=== PATIENT | male | born 2005 | race Two or more races ===

== ENCOUNTER 2024-04-16 09:31 | Emergency (ER) | payer BC ==
[~2024-04-16] VITALS: Ht 177.8 cm; Wt 79.0 kg
[2024-04-16] MEDS ORDERED: PROM1SOL4 PO (12:55)
[2024-04-16] MEDS ORDERED: ZOFR4T PO (12:55)
[2024-04-16] MEDS ORDERED: AUG875T PO (12:55)
[2024-04-16] MEDS ORDERED: IBUP1TAB5 PO (12:55)
[2024-04-16] MEDS ORDERED: BENZ100C97 PO (12:55)
[2024-04-16 13:17] VITALS: BP 133/60; PULSE 86; RESP 18; TEMP 98.5; O2SAT 98
== END 2024-04-16 13:50 | disposition home or self-care (01) ==
LOC: ER 09:31
DX: B34.9 Viral infection, unspecified (principal)

== ENCOUNTER 2024-09-13 09:33 | Emergency (ER) | payer BC, OTHER ==
[~2024-09-13] VITALS: Ht 180.3 cm; Wt 84.0 kg
[~2024-09-13 09:33] MED LIST: AUG875T PO; BENZ100C97 PO; IBUP1TAB5 PO; PROM1SOL4 PO; ZOFR4T PO
--- NOTE | 2024-09-13 10:32 | DVH ---
CLINICAL INDICATION: INJURY TECHNIQUE: XY L ANKLE 3 VIEW Comparison: None FINDINGS/IMPRESSION: : There is no evidence of acute fracture or dislocation. Soft tissues are unremarkable.
--- NOTE | 2024-09-13 10:49 | ED.PDOC ---
Musculoskeletal HPI Comments A 19 YEAR OLD MALE PRESENTS TO THE ED WITH COMPLAINT OF LEFT ANKLE PAIN. PATIENT STATES HE WAS AT WORK TODAY AND HE WAS STEPPING OFF OF A TRUCK HE ACCIDENTALLY TWISTED HIS LEFT ANKLE. PATIENT REPORTS HE IS NOW EXPERIENCING LEFT ANKLE PAIN WITH MILD SWELLING. PATIENT DENIES FEVER, CHILLS, SHORTNESS OF BREATH, CHEST PAIN, ABDOMINAL PAIN, NAUSEA, VOMITING, HEADACHE, OR OTHER COMPLAINTS. NO OTHER SYMPTOMS OR MODIFYING FACTORS AT THIS TIME. PATIENT IS ALERT, ORIENTED X 4, AND HAS STEADY GAIT. Chief Complaint: Lower Extremity Time Seen by MD: 09:51 Primary Care Provider: MARYCARMEN Julio Notes: Nurses Notes, Medications, Allergies Allergies: Coded Allergies: NO KNOWN ALLERGIES (Unverified , 04/16/24) Home Meds Active Scripts Ondansetron Odt 4MG Tab (ZOFRAN PO) 4 Mg Tb, 4 MG PO Q8HPRN PRN for 2 Days, #6 TAB 0 Refills ODT TAB-DISSOLVE IN MOUTH, THEN SWALLOW Prov:RAEGAN LENNON NP 04/16/24 Ibuprofen Micronized (Ibuprofen) 600 Mg Tab, 600 MG PO TID for 10 Days, #30 TAB 0 Refills Prov:RAEGAN LENNON NP 04/16/24 Promethazine-Dm (Promethazine Dm 6.25-15 mg/5Ml) 1 Mame Mame, 5 ML PO TID for 10 Days, #150 ML 0 Refills Prov:RAEGAN LENNON NP 04/16/24 Benzonatate (Benzonatate) 100 Mg Cap, 1 CAP PO TID for 10 Days, #30 CAP 0 Refills Prov:RAEGAN LENNON NP 04/16/24 Amoxicillin & Pot Clavulanate (AUGMENTIN TABLET) 875 Mg Tb, 875 MG PO BID for 7 Days, #14 TAB 0 Refills Prov:RAEGAN LENNON NP 04/16/24 Information Source: Patient Mode of Arrival: Wheelchair Location: Left Extremity Location: Ankle Timing: Days Prehospital treatment: None Severity: Moderate Able to Move Extremity: Yes Bear Weight: Fully Pain: Moderate Mechanism: Twisting Circumstances: Work Related Onset of Symptoms: After Trauma Symptoms: Swelling, Pain DVT Risk Factors: NONE Last Tetanus: UTD Associated signs and symptoms: Ankle pain Past Medical History PAST MEDICAL HISTORY: Denies Surgical History: Denies all surgeries Family History Family History: Reviewed,noncontributory to illness Social History Smoker: Non-Smoker Alcohol: Denies ETOH Use Drugs: Denies Drug Use Lives In: Home Constitutional: denies: chills, diaphoresis, fatigue, fever, malaise, sweats, weakness, others EENTM: denies: blurred vision, double vision, ear bleeding, ear discharge, ear drainage, ear pain, ear ringing, eye pain, eye redness, hearing loss, mouth pain, mouth swelling, nasal discharge, nose bleeding, nose congestion, nose pain, photophobia, tearing, throat pain, throat swelling, voice changes, others Respiratory: denies: cough, hemoptysis, orthopnea, SOB at rest, shortness of breath, SOB with excertion, stridor, wheezing, others Cardiovascular: denies: chest pain, dizzy spells, diaphoresis, Dyspnea on exertion, edema, irregular heart beat, left arm pain, lightheadedness, palpitations, PND, syncope, others Gastrointestinal: denies: abdomen distended, abdominal pain, blood streaked bowels, constipated, diarrhea, dysphagia, difficulty swallowing, hematemesis, melena, nausea, poor appetite, poor fluid intake, rectal bleeding, rectal pain, vomiting, others Genitourinary: denies: burning, dysuria, flank pain, frequency, hematuria, incontinence, penile discharge, penile sore, pain, testicle pain, testicle swelling, urgency, others Neurological: denies: dizziness, fainting, headache, left sided numbness, left sided weakness, numbness, paresthesia, pre-existing deficit, right sided numbne ss, right sided weakness, seizure, speech problems, tingling, tremors, weakness, others Musculoskeletal: reports: joint pain, joint swelling, others (LEFT ANKLE PAIN WITH MILD SWELLING); denies: back pain, gout, muscle pain, muscle stiffness, neck pain Integumetry: denies: bruises, change in color, change in hair/nails, dryness, laceration, lesions, lumps, rash, wounds, others Allergic/Immunocompromised: denies: Difficulty Healing, Frequent Infections, Hives, Itching, others Hematologic/Lymphatic: denies: anemia, blood clots, easy bleeding, easy bruising, swollen glands, others Endocrine: denies: excessive hunger, excessive sweating, excessive thirst, excessive urination, flushing, intolerance to cold, intolerance to heat, unexplained weight gain, unexplained weight loss, others Psychiatric: denies: anxiety, bipolar disorder, depression, hopeless, panic disorder, schizophrenia, sleepless, suicidal, others All Other Systems: Reviewed and Negative Physical Exam General Appearance: No Apparent Distress, Normal HEENT: Normal ENT Inspection, PERRL/EOMI, Pharynx Normal, TMs Normal Neck: Full Range of Motion, Non-Tender, Normal, Normal Inspection Respiratory: Chest Non-Tender, Lungs Clear, No Accessory Muscle Use, No Respiratory Distress, Normal Breath Sounds Cardiovascular: No Edema, No JVD, No Murmur, No Gallop, Normal Peripheral Pulses, Regular Rate/Rhythm Breast Exam: Deferred Gastrointestinal: No Organomegaly, Non Tender, No Pulsatile Mass, Normal Bowel Sounds, Soft Genitalia: Deferred Pelvic: Deferred Rectal: Deferred Extremities: Decreased range of motion, No calf tenderness, Normal capillary refill, No pedal edema, Swelling (TENDERNESS AND MILD SWELLING ON LEFT ANKLE, NO BONY TENDERNESS AND DEFORMITY. ), Tender (AND MILD SWELLING ON LEFT ANKLE, NO BONY TENDERNESS AND DEFORMITY. ) Musculoskeletal : Apperance: Normal Neurologic: Alert, raw hide trimmer II-XII nml as Tested, No Motor Deficits, Normal Affect, Normal Mood, No Sensory Deficits Cerebellar Function: Normal Reflexes: Normal Skin: Dry, Normal Color, Warm Peripheral Pulses: 2+ carotid (R), 2+ carotid (L), 2+ dorsalis pedis (R), 2+ dorsalis pedis (L) Lymphatic: No Adenopathy Was a procedure done? Was a procedure done?: No Differential Diagnosis EXT Differential Diagnosis: Fracture, Sprain, Dislocation, Contusion, Strain, Bursitis X-Ray, Labs, Meds, VS Vital Signs Date Time Temp Pulse Resp B/P (MAP) Pulse Ox O2 Delivery O2 Flow Rate FiO2 09/13/24 09:51 98.0 70 20 127/57 (80) 97 CLINICAL INDICATION: INJURY TECHNIQUE: XY L ANKLE 3 VIEW Comparison: None FINDINGS/IMPRESSION: : There is no evidence of acute fracture or dislocation. Soft tissues are unremarkable. ATED BY: WILBER SEGURA MD DICTATED DATE/TIME: 09/13/24 1029 SIGNED BY: WILBER SEGURA MD SIGNED DATE/TIME: 09/13/24 1029 CC: X-Ray, Labs, Meds, VS Comment EXTERNAL MEDICAL RECORDS REVIEWED: [NONE] INDEPENDENT HISTORIANS: [NONE] SOCIAL DETERMINANTS OF HEALTH: [NONE] LABS ORDERED: NONE REVIEWED AND INTERPRETED RESULTS: NONE IMAGING ORDERED: XR ANKLE LT TREATMENTS ORDERED: LINDA WRAP APPLIED TO PATIENT'S LEFT ANKLE. PROCEDURES PERFORMED: NONE CRITICAL CARE TIME: NONE I HAVE DISCUSSED THE PATIENT WITH THE ATTENDING PHYSICIAN DR. MANE AND HE AGREES WITH THE PATIENT'S PLAN OF CARE AND DISPOSITION. BASED ON HISTORY OF PRESENT ILLNESS, AND PHYSICAL EXAM, PATIENT WILL BE DISCHARGED HOME. SHARED DECISION MAKING: PATIENT INSTRUCTED TO FOLLOW UP WITH PRIMARY CARE PROVIDER IN 1-2 DAYS FOR RE-EVALUATION OF SYMPTOMS. PATIENT VERBALIZES UNDERSTANDING TO RETURN TO ED FOR NEW OR WORSENING SYMPTOMS OR IF FOLLOW UP WITH PCP CANNOT BE OBTAINED. PATIENT FEELS COMFORTABLE GOING HOME AT THIS TIME. ALL QUESTIONS ADDRESSED AT TIME OF DISCHARGE. Images Reviewed?: Images reviewed and evaluated by me Time of 1ST Reevaluation: 11:10 Reevaluation 1ST: Improved Patient Education/Counseling: Diagnosis, Treatment, Need For Follow Up Family Education/Counseling: Diagnosis, Treatment, Need For Follow Up Medical Screening: No EMC Exist At This Time Departure 1 Departure Time of Disposition: 11:10 Impression: Primary Impression: Sprain of left ankle Qualified Codes: S93.402A - Sprain of unspecified ligament of left ankle, initial encounter Disposition: HOME / SELF CARE / HOMELESS Condition: Stable Additional Instructions: FOLLOW-UP WITH PCP IN 1 TO 2 DAYS. TAKE MEDICATIONS PRESCRIBED. RETURN TO ED FOR ANY NEW OR WORSENING SYMPTOMS. e-Prescriptions Ibuprofen (Ibuprofen) 800 Mg Tab 1 TAB PO TID, #30 TAB Prov: SALTY SCHRADER 09/13/24 Discharged With: Self Critical Care Note Critical Care Time?: No Stability Stability form required: No I personally scribed for SALTY SCHRADER ([email or web address]) on 09/13/24 at 10:49. Electronically submitted by Efraín Duckworth ([email or web address]). SALTY SCHRADER Sep 13, 2024 10:49
[2024-09-13] MEDS ORDERED: IBUP-1456 PO (11:04)
[2024-09-13] MEDS: IBUPROFEN 800 MG TAB PO ONE (11:07)
[2024-09-13 11:08] VITALS: BP 127/57; PULSE 70; RESP 20; TEMP 98; O2SAT 97
== END 2024-09-13 11:11 | disposition home or self-care (01) ==
LOC: ER 09:33
DX: S93.402A Sprain of unspecified ligament of left ankle, initial encounter (principal); Z79.1 Long term (current) use of non-steroidal anti-inflammatories (NSAID); X50.1XXA Overexertion from prolonged static or awkward postures, initial encounter; Y93.89 Activity, other specified; Y92.89 Other specified places as the place of occurrence of the external cause; Y99.8 Other external cause status
CPT/HCPCS: 73610

== ENCOUNTER 2025-06-27 11:43 | Inpatient (IN) | payer OTHER, MEDICAID ==
[~2025-06-27] VITALS: Ht 177.8 cm; Wt 87.0 kg
[~2025-06-27 11:43] MED LIST changes: +IBUP-1456 PO
--- NOTE | 2025-06-27 12:52 | ED.PDOC ---
GI ASSESSMENT HPI Comments A 20 YEAR OLD MALE PRESENTS TO THE ED WITH COMPLAINT OF ABDOMINAL PAIN. PATIENT STATES HE HAS BEEN EXPERIENCING GENERALIZED ABDOMINAL PAIN FOR THE PAST 3 DAYS. PATIENT REPORTS HE WAS SENT FROM AN URGENT CARE FOR FURTHER EVALUATION OF HIS ABDOMINAL PAIN. WALKING AND PHYSICAL ACTIVITY INCREASES THE PAIN. PATIENT DENIES FEVER, CHILLS, SHORTNESS OF BREATH, CHEST PAIN, NAUSEA, VOMITING, HEADACHE, OR OTHER COMPLAINTS. NO OTHER SYMPTOMS OR MODIFYING FACTORS AT THIS TIME. PATIENT IS ALERT, ORIENTED X 4, AND HAS STEADY GAIT. Chief Complaint: Abdominal Pain Time Seen by MD: 12:33 Primary Care Provider: MARYCARMEN Reviewed Notes: Nurses Notes, Medications, Allergies Allergies: Coded Allergies: NO KNOWN ALLERGIES (Unverified , 04/16/24) Home Meds Active Scripts Ibuprofen (Ibuprofen) 800 Mg Tab, 1 TAB PO TID, #30 TAB Prov:SALTY SCHRADER 09/13/24 Ondansetron Odt 4MG Tab (ZOFRAN PO) 4 Mg Tb, 4 MG PO Q8HPRN PRN for 2 Days, #6 TAB 0 Refills ODT TAB-DISSOLVE IN MOUTH, THEN SWALLOW Prov:RAEGAN LENNON NP 04/16/24 Ibuprofen Micronized (Ibuprofen) 600 Mg Tab, 600 MG PO TID for 10 Days, #30 TAB 0 Refills Prov:RAEGAN LENNON NP 04/16/24 Promethazine-Dm (Promethazine Dm 6.25-15 mg/5Ml) 1 Mame Mame, 5 ML PO TID for 10 Days, #150 ML 0 Refills Prov:RAEGAN LENNON NP 04/16/24 Benzonatate (Benzonatate) 100 Mg Cap, 1 CAP PO TID for 10 Days, #30 CAP 0 Refills Prov:RAEGAN LENNON NP 04/16/24 Amoxicillin & Pot Clavulanate (AUGMENTIN TABLET) 875 Mg Tb, 875 MG PO BID for 7 Days, #14 TAB 0 Refills Prov:RAEGAN LENNON NP 04/16/24 Information Source: Patient Mode of Arrival: Ambulatory Timing: Days Duration: Since onset, Days Prehospital treatment: None Quality: Aching, Cramping Vomitus: None Stool: Normal Severity: Moderate Recent: None Pain Location: Diffuse Modifying Factors: Nothing Associated sign and symptoms: Abdominal Pain Past Medical History PAST MEDICAL HISTORY: Denies Surgical History: Denies all surgeries Family History Family History: Reviewed,noncontributory to illness Social History Smoker: Non-Smoker Alcohol: Denies ETOH Use Drugs: Denies Drug Use Lives In: Home Constitutional: denies: chills, diaphoresis, fatigue, fever, malaise, sweats, weakness, others EENTM: denies: blurred vision, double vision, ear bleeding, ear discharge, ear drainage, ear pain, ear ringing, eye pain, eye redness, hearing loss, mouth pain, mouth swelling, nasal discharge, nose bleeding, nose congestion, nose pain, photophobia, tearing, throat pain, throat swelling, voice changes, others Respiratory: denies: cough, hemoptysis, orthopnea, SOB at rest, shortness of breath, SOB with excertion, stridor, wheezing, others Cardiovascular: denies: chest pain, dizzy spells, diaphoresis, Dyspnea on exertion, edema, irregular heart beat, left arm pain, lightheadedness, palpitations, PND, syncope, others Gastrointestinal: reports: abdominal pain; denies: abdomen distended, blood streaked bowels, constipated, diarrhea, dysphagia, difficulty swallowing, pablo temesis, melena, nausea, poor appetite, poor fluid intake, rectal bleeding, rectal pain, vomiting, others Genitourinary: denies: burning, dysuria, flank pain, frequency, hematuria, incontinence, penile discharge, penile sore, pain, testicle pain, testicle swelling, urgency, others Neurological: denies: dizziness, fainting, headache, left sided numbness, left sided weakness, numbness, paresthesia, pre-existing deficit, right sided numbness, right sided weakness, seizure, speech problems, tingling, tremors, weakness, others Musculoskeletal: denies: back pain, gout, joint pain, joint swelling, muscle pain, muscle stiffness, neck pain, others Integumetry: denies: bruises, change in color, change in hair/nails, dryness, laceration, lesions, lumps, rash, wounds, others Allergic/Immunocompromised: denies: Difficulty Healing, Frequent Infections, Hives, Itching, others Hematologic/Lymphatic: denies: anemia, blood clots, easy bleeding, easy bruising, swollen glands, others Endocrine: denies: excessive hunger, excessive sweating, excessive thirst, excessive urination, flushing, intolerance to cold, intolerance to heat, unexplained weight gain, unexplained weight loss, others Psychiatric: denies: anxiety, bipolar disorder, depression, hopeless, panic disorder, schizophrenia, sleepless, suicidal, others All Other Systems: Reviewed and Negative Physical Exam General Appearance: No Apparent Distress, Normal HEENT: Normal ENT Inspection, PERRL/EOMI, Pharynx Normal, TMs Normal Neck: Full Range of Motion, Non-Tender, Normal, Normal Inspection Respiratory: Chest Non-Tender, Lungs Clear, No Accessory Muscle Use, No Respiratory Distress, Normal Breath Sounds Cardiovascular: No Edema, No JVD, No Murmur, No Gallop, Normal Peripheral Pulses, Regular Rate/Rhythm Breast Exam: Deferred Gastrointestinal: LLQ, No Organomegaly, No Pulsatile Mass, Normal Bowel Sounds, RLQ, Soft, Tenderness (MIDDLE AND LOWER ABD WITH GUARDING AND REBOUND TENDERNESS, MILD DISTENDED ABD. ) Genitalia: Deferred Pelvic: Deferred Rectal: Deferred Extremities: No calf tenderness, Normal capillary refill, Normal inspection, No rmal range of motion, Non-tender, No pedal edema Musculoskeletal : Apperance: Normal Neurologic: Alert, cafeteria clerk II-XII nml as Tested, No Motor Deficits, Normal Affect, Normal Mood, No Sensory Deficits Cerebellar Function: Normal Reflexes: Normal Skin: Dry, Normal Color, Warm Peripheral Pulses: 2+ carotid (R), 2+ carotid (L) Lymphatic: No Adenopathy Was a procedure done? Was a procedure done?: No GI differential Dx Differential Diagnosis: Appendicitis, Bowel Obstruction, Constipation, Diverticular disease, Gastritis/PUD, Inflammatory BD, Pancreatitis, UTI, Kidney Stone X-Ray, Labs, Meds, VS Vital Signs Date Time Temp Pulse Resp B/P (MAP) Pulse Ox O2 Delivery O2 Flow Rate FiO2 06/27/25 12:41 94 19 99 Room Air 06/27/25 12:41 99.1 94 19 127/58 (81) 99 99.1 06/27/25 12:01 99.1 94 19 127/58 99 99.1 Lab Test 06/27/25 13:07 06/27/25 13:06 Range/Units Urine Color Yellow Yellow Urine Clarity Clear Clear Urine pH 5.5 5.0-9.0 Urine Specific [place] 1.029 1.001-1.035 Urine Protein Negative Negative Urine Ketones 1+ H Negative Urine Blood Negative Negative /uL Urine Nitrite Negative Negative Urine Bilirubin Negative Negative Urine Urobilinogen Normal Negative mg/dL Urine Leukocyte Esterase Negative Negative /uL Urine RBC 1 0 - 3 /hpf Urine Microscopic WBC 2 0-3 /HPF Urine Squamous Epithelial Cells None seen <5 /hpf Urine Bacteria None seen None Seen /hpf Urine Mucus Few None Seen Urine Glucose Normal Normal mg/dL White Blood Count 11.6 H 4.4-10.8 10^3/uL Red Blood Count 4.91 4.5-5.90 10^6/uL Hemoglobin 14.8 13.5-17.5 g/dL Hematocrit 43.3 41.0-53.0 % Mean Corpuscular Volume 88.2 80.0-100.0 fL Mean Corpuscular Hemoglobin 30.2 28.0-32.0 pg Mean Corpuscular Hemoglobin Concent 34.2 32.0-36.0 g/dL Red Cell Distribution Width 13.6 11.8-14.3 % Platelet Count 205 140-450 10^3/uL Mean Platelet Volume 8.1 6.9-10.8 fL Neutrophils (%) (Auto) 84.4 H 37.0-80.0 % Lymphocytes (%) (Auto) 8.8 L 10.0-50.0 % Monocytes (%) (Auto) 6.3 0.0-12.0 % Eosinophils (%) (Auto) 0.3 0.0-7.0 % Basophils (%) (Auto) 0.2 0.0-2.0 % Neutrophils # (Auto) 9.8 H 1.6-8.6 10 ^3/uL Lymphocytes # (Auto) 1.0 0.4-5.4 10 ^3/uL Monocytes # (Auto) 0.7 0-1.3 10 ^3/uL Eosinophils # (Auto) 0 0-0.8 10 ^3/uL Basophils # (Auto) 0 0-0.2 10 ^3/uL Nucleated Red Blood Cells 0.0 % Sodium Level 142 136-145 mmol/L Potassium Level 3.9 3.5-5.1 mmol/L Chloride Level 105 98-107 mmol/L Carbon Dioxide Level 26 20-31 mmol/L Anion Gap 11 5-15 Blood Urea Nitrogen 14 9-23 mg/dL Creatinine 1.17 0.700-1.30 mg/dL Glomerular Filtration Rate Calc 90 >90 mL/min BUN/Creatinine Ratio 12.0 10.0-20.0 Serum Glucose 99 74-106 mg/dL Calcium Level 10.0 8.7-10.4 mg/dL Total Bilirubin 0.9 0.2-1.0 mg/dL Aspartate Amino Transferase (AST) 31 13-40 U/L Alanine Aminotransferase (ALT) 20 7-40 U/L Alkaline Phosphatase 112 46-116 U/L Total Protein 7.9 5.7-8.2 g/dL Albumin 4.9 H 3.2-4.8 g/dL Lipase 28 12-53 U/L Current Medications Medications (Trade) Dose Ordered Sig/Chetan Route Start Time Stop Time Status Last Admin Sodium Chloride 1,000 ml @ 1,000 mls/hr Q1H ONCE IV 06/27/25 14:00 06/27/25 14:59 DC 06/27/25 14:13 ORDERING PHYSICIAN: SALTY SCHRADER PROCEDURE(s): ABPL - CT AB PEL WO CON-NO ORAL OR IV REASON: GENERAL ABD PAIN ORDER NUMBER(s): [id number], ACCESSION NUMBER(s): [id number] EXAM: CT CT AB PEL WO CON-NO ORAL OR IV History: GENERAL ABD PAIN Comparison Study: None TECHNIQUE: Multidetector CT of the abdomen AND PELVIS without IV contrast. Axial, coronal and sagittal multiplanar reformats were obtained from the axial data set by the technologist. Radiation Dose Information: CT Dose: CTDI volume is 6.93 mGy. Dose-length product is 3.92 mGy*cm FINDINGS: Bibasilar linear atelectasis. Partially visualized heart is unremarkable. Mild hepatomegaly. Otherwise, liver, spleen, gallbladder, pancreas and adrenal glands unremarkable. Kidneys, ureters and urinary bladder unremarkable. Prostate is unremarkable. Stomach is unremarkable. Small bowel loops unremarkable. 2 mm appendicoliths of the proximal appendix with Mild distention of the Appendix up to 9 mm and periappendiceal Minimal Fat stranding. Moderate amount of fecal material within the colon. No evidence of intraperitoneal free air or free fluid. No evidence of aortic aneurysm. Mild prominence of the mesenteric lymph nodes measuring up to 0.9 cm over the right lower abdominal quadrant which may be reactive. The soft tissues are unremarkable. Tiny fat containing umbilical hernia. No evidence of acute osseous abnormalities. IMPRESSION: Appendicoliths within the proximal appendix with mild dilatation of the appendix up to 9 mm and minimal periappendiceal fat stranding. Correlate for possible acute uncomplicated appendicitis. ATED BY: LARA SOSA DO DICTATED DATE/TIME: 06/27/251325 SIGNED BY: LARA SOSA DO SIGNED DATE/TIME: 06/27/251325 CC: X-Ray, Labs, Meds, VS Comment EXTERNAL MEDICAL RECORDS REVIEWED: [NONE] INDEPENDENT HISTORIANS: [NONE] SOCIAL DETERMINANTS OF HEALTH: [NONE] LABS ORDERED: CBC, CMP, LIPASE, UA REVIEWED AND INTERPRETED RESULTS: WBC 11.6 IMAGING ORDERED: CT ABD/PEL TREATMENTS ORDERED: NS 1 L IV, ZOFRAN 4 MG IV, MORPHINE 4 MG IV, ZOSYN 3.375 G IV PROCEDURES PERFORMED: NONE CRITICAL CARE TIME: NONE I HAVE DISCUSSED THE PATIENT WITH THE ATTENDING PHYSICIAN DR. MAURICIO AND HE AGREES WITH THE PATIENT'S PLAN OF CARE. UPON MY PHYSICAL EXAMINATION, THE PATIENT HAD TENDERNESS NOTED UPON PALPATION TO HIS RIGHT LOWER QUADRANT, BUT NO REBOUND TENDERNESS NOTED UPON PALPATION, WAS OBTURATOR SIGN POSITIVE. LABS ORDERED FOR THE PATIENT WHICH REVEALED AN ELEVATED WHITE BLOOD COUNT OF 11.6, BUT NO OTHER ACUTE FINDINGS. A CT SCAN OF THE PATIENT'S ABDOMEN AND PELVIS WAS DONE WHICH REVEALED AN APPENDICOLITH WITH POSSIBLE ACUTE UNCOMPLICATED APPENDICITIS. DUE TO THE PATIENT'S PHYSICAL EXAM FINDINGS, AND THE PATIENT'S CT SCAN RESULTS, I HAVE DETERMINED THE PATIENT NEEDS TO BE ADMITTED FOR FURTHER TREATMENT AND EVALUATION. THE ON-CALL HOSPITALIST WILL BE CONTACTED FOR ADMISSION OF THE PATIENT AND THE ON-CALL GENERAL SURGEON WILL BE CONTACTED FOR CONSULT. 1438: I HAVE CONSULTED THE ON-CALL GENERAL SURGEON, DR. Janette HARRIS REGARDING THIS PATIENT'S CASE AND HE HAS AGREED TO CONSULT ON THIS PATIENT'S CASE AND HAS SAID HE WILL DO THE PATIENT'S SURGERY LATER TODAY. Images Reviewed?: Images reviewed and evaluated by me Time of 1ST Reevaluation: 15:00 Reevaluation 1ST: Unchanged Consultation: Surgery (1438: I HAVE CONSULTED THE ON-CALL GENERAL SURGEON, DR. Janette HARRIS REGARDING THIS PATIENT'S CASE AND HE HAS AGREED TO CONSULT ON THIS PATIENT'S CASE.) Patient Education/Counseling: Diagnosis, Treatment Family Education/Counseling: Diagnosis, Treatment SEPSIS Sepsis Screen Date sepsis recognized/suspect: Jun 27, 2025 Time Sepsis recognized/suspect: 7 Recent Procedure: No On Antibiotic Therapy: No Respiratory Rate >20: No Heart Rate >90: No Temp<36 C (96.8 F) or >38.3 C: No SBP <90 or MAP <65 mmHG: No New Acute Mental Status Change: No Is the patient on CPAP, BIPAP,: No Physician Orders Ct Ab Pel Wo Con-No Oral Or Iv (06/27/25 12:33) Heplock Iv (06/27/25 ) * Surgical Consult (06/27/25 ) Npo (Nothing By Mouth) Diet (06/27/25 Dinner) Obtain Consent For: (06/27/25 14:57) Obtain Consent For Anesthesia (06/27/25 14:57) Oxygen By Face Mask (06/27/25 15:05) Packaging Manager (06/27/25 15:05) Notify Anesth. For Changes: (06/27/25 15:05) Pulse Ox Assessment (06/27/25 15:05) Discharge To Room Per Criteria (06/27/25 15:05) Vital Signs Date Time Temp Pulse Resp B/P (MAP) Pulse Ox O2 Delivery O2 Flow Rate FiO2 06/27/25 12:41 94 19 99 Room Air 06/27/25 12:41 99.1 94 19 127/58 (81) 99 99.1 06/27/25 12:01 99.1 94 19 127/58 99 99.1 Laboratory Tests Test 06/27/25 13:06 White Blood Count 11.6 10^3/uL (4.4-10.8) H Medications Medications Dose Ordered Sig/Chetan Route Start Time Stop Time Status Last Admin Dose Admin Sodium Chloride 1,000 ml @ 1,000 mls/hr Q1H ONCE IV 06/27/25 14:00 06/27/25 14:59 DC 06/27/25 14:13 Departure 1 Departure Time of Disposition: 15:00 Impression: Primary Impression: Acute appendicitis Qualified Codes: K35.80 - Unspecified acute appendicitis Additional Impression: Appendicolith Disposition: 09 ADMITTED INPATIENT Condition: Serious Critical Care Note Critical Care Time?: No Stability Stability form required: Yes Unstable for transfer: Requires medication, ED Physician Assesment, Possible rapid decline I personally scribed for SALTY SCHRADER ([email or web address]) on 06/27/25 at 12:52. Electronically submitted by Efraín Duckworth ([email or web address]). I personally scribed for SALTY SCHRADER ([email or web address]) on 06/27/25 at 14:30. Electronically submitted by Efraín Duckworth ([email or web address]). I personally scribed for SALTY SCHRADER ([email or web address]) on 06/27/25 at 14:39. Electronically submitted by Efraín Duckworth ([email or web address]). I personally scribed for SALTY SCHRADER ([email or web address]) on 06/27/25 at 14:48. Electronically submitted by Efraín Duckworth ([email or web address]). SALTY SCHRADER Jun 27, 2025 12:52
[2025-06-27 13:20] LABS: Hematocrit 43.3 % (41.0-53.0); Hemoglobin 14.8 g/dL (13.5-17.5); Mean Corpuscular Hemoglobin 30.2 pg (28.0-32.0); Mean Corpuscular Volume 88.2 fL (80.0-100.0); Nucleated Red Blood Cells % 0.0 %
--- NOTE | 2025-06-27 13:28 | DVH ---
EXAM: CT CT AB PEL WO CON-NO ORAL OR IV History: GENERAL ABD PAIN Comparison Study: None TECHNIQUE: Multidetector CT of the abdomen AND PELVIS without IV contrast. Axial, coronal and sagittal multiplanar reformats were obtained from the axial data set by the technologist. Radiation Dose Information: CT Dose: CTDI volume is 6.93 mGy. Dose-length product is 3.92 mGy*cm FINDINGS: Bibasilar linear atelectasis. Partially visualized heart is unremarkable. Mild hepatomegaly. Otherwise, liver, spleen, gallbladder, pancreas and adrenal glands unremarkable. Kidneys, ureters and urinary bladder unremarkable. Prostate is unremarkable. Stomach is unremarkable. Small bowel loops unremarkable. 2 mm appendicoliths of the proximal appendix with Mild distention of the Appendix up to 9 mm and periappendiceal Minimal Fat stranding. Moderate amount of fecal material within the colon. No evidence of intraperitoneal free air or free fluid. No evidence of aortic aneurysm. Mild prominence of the mesenteric lymph nodes measuring up to 0.9 cm over the right lower abdominal quadrant which may be reactive. The soft tissues are unremarkable. Tiny fat containing umbilical hernia. No evidence of acute osseous abnormalities. IMPRESSION: Appendicoliths within the proximal appendix with mild dilatation of the appendix up to 9 mm and minimal periappendiceal fat stranding. Correlate for possible acute uncomplicated appendicitis.
[2025-06-27 13:32] LABS: Urine Protein, UAD Negative (Negative)
[2025-06-27 13:38] LABS: Alanine Aminotransferase 20 U/L (7-40); Alkaline Phosphatase 112 U/L (46-116); Anion Gap 11 (5-15); BUN/Creatinine Ratio 12.0 (10.0-20.0); Blood Urea Nitrogen 14 mg/dL (9-23); Calcium 10.0 mg/dL (8.7-10.4); Carbon Dioxide 26 mmol/L (20-31); Chloride 105 mmol/L (98-107); Glucose 99 mg/dL (74-106); Lipase 28 U/L (12-53); Potassium 3.9 mmol/L (3.5-5.1); Sodium 142 mmol/L (136-145); Total Protein 7.9 g/dL (5.7-8.2)
[2025-06-27 13:39] LABS: Bilirubin, Total 0.9 mg/dL (0.2-1.0)
[2025-06-27 13:42] LABS: Albumin 4.9 g/dL (3.2-4.8)
[2025-06-27] MEDS: MORPHINE SULFATE 4 MG/ML SYR/VIAL IV ONE (14:00)
[2025-06-27] MEDS: ONDANSETRON HCL 4 MG/2 ML VIAL IV ONE (14:00)
[2025-06-27] MEDS: PIPERACILLIN-TAZOB 3.375GM 100 ML IV ONE (14:00)
[2025-06-27] MEDS: SODIUM CHLORIDE 0.9% 1,000 ML IV ONE (14:13)
--- NOTE | 2025-06-27 14:57 | DVHINCON2 ---
Date of service: Jun 27, 2025 Allergies: Coded Allergies: NO KNOWN ALLERGIES (Unverified , 04/16/24) Home Meds Active Scripts Ibuprofen (Ibuprofen) 800 Mg Tab, 1 TAB PO TID, #30 TAB Prov:SALTY SCHRADER 09/13/24 Ondansetron Odt 4MG Tab (ZOFRAN PO) 4 Mg Tb, 4 MG PO Q8HPRN PRN for 2 Days, #6 TAB 0 Refills ODT TAB-DISSOLVE IN MOUTH, THEN SWALLOW Prov:RAEGAN LENNON NP 04/16/24 Ibuprofen Micronized (Ibuprofen) 600 Mg Tab, 600 MG PO TID for 10 Days, #30 TAB 0 Refills Prov:RAEGAN LENNON NP 04/16/24 Promethazine-Dm (Promethazine Dm 6.25-15 mg/5Ml) 1 Mame Mame, 5 ML PO TID for 10 Days, #150 ML 0 Refills Prov:RAEGAN LENNON NP 04/16/24 Benzonatate (Benzonatate) 100 Mg Cap, 1 CAP PO TID for 10 Days, #30 CAP 0 Refills Prov:RAEGAN LENNON NP 04/16/24 Amoxicillin & Pot Clavulanate (AUGMENTIN TABLET) 875 Mg Tb, 875 MG PO BID for 7 Days, #14 TAB 0 Refills Prov:RAEGAN LENNON NP 04/16/24 Vital Signs Vital Signs Date Time Temp Pulse Resp B/P (MAP) Pulse Ox O2 Delivery O2 Flow Rate FiO2 06/27/25 12:41 94 19 99 Room Air 06/27/25 12:41 99.1 127/58 (81) 99.1 Labs/Diagnostic Data Labs Test 06/27/25 13:07 06/27/25 13:06 Range/Units Urine Color Yellow Yellow Urine Clarity Clear Clear Urine pH 5.5 5.0-9.0 Urine Specific [place] 1.029 1.001-1.035 Urine Protein Negative Negative Urine Ketones 1+ H Negative Urine Blood Negative Negative /uL Urine Nitrite Negative Negative Urine Bilirubin Negative Negative Urine Urobilinogen Normal Negative mg/dL Urine Leukocyte Esterase Negative Negative /uL Urine RBC 1 0 - 3 /hpf Urine Microscopic WBC 2 0-3 /HPF Urine Squamous Epithelial Cells None seen <5 /hpf Urine Bacteria None seen None Seen /hpf Urine Mucus Few None Seen Urine Glucose Normal Normal mg/dL White Blood Count 11.6 H 4.4-10.8 10^3/uL Red Blood Count 4.91 4.5-5.90 10^6/uL Hemoglobin 14.8 13.5-17.5 g/dL Hematocrit 43.3 41.0-53.0 % Mean Corpuscular Volume 88.2 80.0-100.0 fL Mean Corpuscular Hemoglobin 30.2 28.0-32.0 pg Mean Corpuscular Hemoglobin Concent 34.2 32.0-36.0 g/dL Red Cell Distribution Width 13.6 11.8-14.3 % Platelet Count 205 140-450 10^3/uL Mean Platelet Volume 8.1 6.9-10.8 fL Neutrophils (%) (Auto) 84.4 H 37.0-80.0 % Lymphocytes (%) (Auto) 8.8 L 10.0-50.0 % Monocytes (%) (Auto) 6.3 0.0-12.0 % Eosinophils (%) (Auto) 0.3 0.0-7.0 % Basophils (%) (Auto) 0.2 0.0-2.0 % Neutrophils # (Auto) 9.8 H 1.6-8.6 10 ^3/uL Lymphocytes # (Auto) 1.0 0.4-5.4 10 ^3/uL Monocytes # (Auto) 0.7 0-1.3 10 ^3/uL Eosinophils # (Auto) 0 0-0.8 10 ^3/uL Basophils # (Auto) 0 0-0.2 10 ^3/uL Nucleated Red Blood Cells 0.0 % Sodium Level 142 136-145 mmol/L Potassium Level 3.9 3.5-5.1 mmol/L Chloride Level 105 98-107 mmol/L Carbon Dioxide Level 26 20-31 mmol/L Anion Gap 11 5-15 Blood Urea Nitrogen 14 9-23 mg/dL Creatinine 1.17 0.700-1.30 mg/dL Glomerular Filtration Rate Calc 90 >90 mL/min BUN/Creatinine Ratio 12.0 10.0-20.0 Serum Glucose 99 74-106 mg/dL Calcium Level 10.0 8.7-10.4 mg/dL Total Bilirubin 0.9 0.2-1.0 mg/dL Aspartate Amino Transferase (AST) 31 13-40 U/L Alanine Aminotransferase (ALT) 20 7-40 U/L Alkaline Phosphatase 112 46-116 U/L Total Protein 7.9 5.7-8.2 g/dL Albumin 4.9 H 3.2-4.8 g/dL Lipase 28 12-53 U/L Assessment [id number] ac appendicitis LAP/OPEN APPENDECTOMY BENEFITS RISKS DISCUSSED PT CONSENTS Plan discussed with: Patient SINDY HARRIS MD Jun 27, 2025 14:57
[2025-06-27] MEDS ORDERED: METOCLOPRAMIDE HCL 5MG/ml INJ 2ml VIAL IV PRN (15:15)
[2025-06-27] MEDS: ACETAMINOPHEN IV 1000 MG/100ML (10MG/ML) IV ONE (15:15)
[2025-06-27] MEDS ORDERED: ONDANSETRON HCL 4 MG/2 ML VIAL IV PRN (15:15)
[2025-06-27] MEDS ORDERED: MIDAZOLAM HCL 2MG/2ML 2ml VIAL (1mg/ml) ONE (15:17)
[2025-06-27] MEDS ORDERED: fentaNYL CITRATE 100 MCG/2 ML VL ONE (15:17)
[2025-06-27] MEDS ORDERED: METOCLOPRAMIDE HCL 5MG/ml INJ 2ml VIAL ONE (15:17)
[2025-06-27] MEDS ORDERED: ONDANSETRON HCL 4 MG/2 ML VIAL ONE (15:17)
[2025-06-27] MEDS ORDERED: LIDOCAINE 2% (LOCAL ANESTH.) PF 5ml SDV ONE (15:17)
[2025-06-27] MEDS ORDERED: PROPOFOL 10 MG/ML 20 ML IV ONE (15:18)
[2025-06-27] MEDS ORDERED: ROCURONIUM 10MG/ML 10ML VIAL IV ONE (15:18)
[2025-06-27] MEDS: ceFAZolin 2 GM/D5W50ml 50 ML IV ONE (15:31)
[2025-06-27] MEDS ORDERED: SODIUM CHLORIDE LOCK 10 ML ONE (15:49)
[2025-06-27] MEDS: BUPIVACAINE 0.25% INJ 50ML VIAL ONE ×2 (15:51→15:55)
[2025-06-27] MEDS ORDERED: LIDOCAINE W/ EPINEPHRINE 1% 20ML VIAL ONE (15:53)
[2025-06-27] MEDS ORDERED: HYDROmorphone HCL 2 MG/ML VL/or syr ONE (15:57)
[2025-06-27] MEDS ORDERED: SUGAMMADEX 200mg/2ml Vial (100MG/ML) IV ONE (15:57)
--- NOTE | 2025-06-27 16:17 | DVHOP2 ---
Operative Report [id number] AC APPENDICITIS INTRAABD PELVIC ABSCESS DRAINAGE OF INTRAABD PELVIC ABSCESS LAP APPENDECTOMY EBL 5 CC NO DRAINS NO COMPLICATIONS STABLE TRANSFER TO RECOVERY ROOM SINDY HARRIS MD Jun 27, 2025 16:17
[2025-06-27 16:27] VITALS: O2SAT 100
--- NOTE | 2025-06-27 16:55 | DVHHP2 ---
History of Present Illness Reason for Visit: abd pain History of Present Illness 20-year-old male with past medical history significant only for eczema and no prior surgical history presented with right lower quadrant abdominal pain for three days. He was evaluated at an urgent care facility and sent to the emergency department for concern of appendicitis. CT abdomen and pelvis demonstrated uncomplicated acute appendicitis. The patient underwent laparos copic appendectomy performed by Dr. Casey. Postoperatively, the patient was noted to be in bed and not arousable on initial exam, though his airway was patent with an oral airway device in place. He has laparoscopic incision sites to the abdomen. In the ED prior to surgery, he received Zofran, morphine, and IV normal saline. Laboratory evaluation showed WBC 11.6, CMP unremarkable, and urinalysis positive for ketones. Patient denies alcohol, smoking, or drug use per nursing staff documentation. Given his immediate postoperative status and decreased arousability, he will be admitted to [facility] for close monitoring, IV fluids, antibiotics, and pain management. If mental status improves, plan to downgrade level of care. Past Medical History See HPI above Past Surgical History See HPI above Family History Reviewed, non-contributory to the management of this case. Past Social History According to nursing notes denies drug alcohol or smoking Review of Systems Constitutional: No: Fever, Chills, Sweats, Weakness, Malaise, Other Eyes: No: Pain, Vision change, Conjunctivae inflammation, Eyelid inflammation, Other, Redness ENT: No: Ear pain, Ear discharge, Nose pain, Nose discharge, Nose congestion, Mouth pain, Mouth swelling, Throat pain, Throat swelling, Other Respiratory: No: Cough, Dry, Shortness of breath, SOB with excertion, Wheezing, Hemoptysis, Pleuritic Pain, Sputum, Wheezing, Other Cardiovascular: No: Chest Pain, Palpitations, Orthopnea, Paroxysmal Noc. Dyspnea, Edema, Lt Headedness, Other Gastrointestinal: Abdominal Pain; No: Nausea, Vomiting, Diarrhea, Constipation, Melena, Hematochezia, Other Genitourinary: No Dysuria, No Frequency, No Incontinence, No Hematuria, No Retention, No Other Musculoskeletal: No: other, neck pain, shoulder pain, arm pain, back pain, hand pain, leg pain, foot pain Skin: No: Rash, Lesions, Jaundice, Bruising, Other Neurological: No: Weakness, Numbness, Incoordination, Change in speech, Confusion, Seizures, Other Allergies: Coded Allergies: NO KNOWN ALLERGIES (Unverified , 04/16/24) Exam Vital Signs Vital Signs Date Time Temp Pulse Resp B/P (MAP) Pulse Ox O2 Delivery O2 Flow Rate FiO2 06/27/25 12:41 94 19 99 Room Air 06/27/25 12:41 99.1 127/58 (81) 99.1 General Appearance: Other (Sedated with postop medication but airway device in place) HEENT: Other (Oral airway device in place) Respiratory: Clear to auscultation, Normal air movement Cardiovascular: Regular rate, Normal S1, Normal S2, No murmurs Abdominal: Other (Surgical incision three laparoscopic sites with glue in place) Extremities: No clubbing, No cyanosis, No edema, Normal pulses, No tenderness/swelling Skin: No rashes, No breakdown, No significant lesion Neuro: Other (Neuro nonfocal) Labs/Xrays CT scan abdomen pelvis shows uncomplicated appendicitis I reviewed labs, imaging CT scan abdomen pelvis, EKG and all diagnostic studies on this patient from ED records and the medical chart Labs Test 06/27/25 13:07 06/27/25 13:06 Range/Units Urine Color Yellow Yellow Urine Clarity Clear Clear Urine pH 5.5 5.0-9.0 Urine Specific [place] 1.029 1.001-1.035 Urine Protein Negative Negative Urine Ketones 1+ H Negative Urine Blood Negative Negative /uL Urine Nitrite Negative Negative Urine Bilirubin Negative Negative Urine Urobilinogen Normal Negative mg/dL Urine Leukocyte Esterase Negative Negative /uL Urine RBC 1 0 - 3 /hpf Urine Microscopic WBC 2 0-3 /HPF Urine Squamous Epithelial Cells None seen <5 /hpf Urine Bacteria None seen None Seen /hpf Urine Mucus Few None Seen Urine Glucose Normal Normal mg/dL White Blood Count 11.6 H 4.4-10.8 10^3/uL Red Blood Count 4.91 4.5-5.90 10^6/uL Hemoglobin 14.8 13.5-17.5 g/dL Hematocrit 43.3 41.0-53.0 % Mean Corpuscular Volume 88.2 80.0-100.0 fL Mean Corpuscular Hemoglobin 30.2 28.0-32.0 pg Mean Corpuscular Hemoglobin Concent 34.2 32.0-36.0 g/dL Red Cell Distribution Width 13.6 11.8-14.3 % Platelet Count 205 140-450 10^3/uL Mean Platelet Volume 8.1 6.9-10.8 fL Neutrophils (%) (Auto) 84.4 H 37.0-80.0 % Lymphocytes (%) (Auto) 8.8 L 10.0-50.0 % Monocytes (%) (Auto) 6.3 0.0-12.0 % Eosinophils (%) (Auto) 0.3 0.0-7.0 % Basophils (%) (Auto) 0.2 0.0-2.0 % Neutrophils # (Auto) 9.8 H 1.6-8.6 10 ^3/uL Lymphocytes # (Auto) 1.0 0.4-5.4 10 ^3/uL Monocytes # (Auto) 0.7 0-1.3 10 ^3/uL Eosinophils # (Auto) 0 0-0.8 10 ^3/uL Basophils # (Auto) 0 0-0.2 10 ^3/uL Nucleated Red Blood Cells 0.0 % Sodium Level 142 136-145 mmol/L Potassium Level 3.9 3.5-5.1 mmol/L Chloride Level 105 98-107 mmol/L Carbon Dioxide Level 26 20-31 mmol/L Anion Gap 11 5-15 Blood Urea Nitrogen 14 9-23 mg/dL Creatinine 1.17 0.700-1.30 mg/dL Glomerular Filtration Rate Calc 90 >90 mL/min BUN/Creatinine Ratio 12.0 10.0-20.0 Serum Glucose 99 74-106 mg/dL Calcium Level 10.0 8.7-10.4 mg/dL Total Bilirubin 0.9 0.2-1.0 mg/dL Aspartate Amino Transferase (AST) 31 13-40 U/L Alanine Aminotransferase (ALT) 20 7-40 U/L Alkaline Phosphatase 112 46-116 U/L Total Protein 7.9 5.7-8.2 g/dL Albumin 4.9 H 3.2-4.8 g/dL Lipase 28 12-53 U/L SEPSIS Sepsis Screen Date sepsis recognized/suspect: Jun 27, 2025 Time Sepsis recognized/suspect: 1207 Recent Procedure: No On Antibiotic Therapy: No Respiratory Rate >20: No Heart Rate >90: No Temp<36 C (96.8 F) or >38.3 C: No SBP <90 or MAP <65 mmHG: No New Acute Mental Status Change: No Is the patient on CPAP, BIPAP,: No Physician Orders Ct Ab Pel Wo Con-No Oral Or Iv (06/27/25 12:33) Heplock Iv (06/27/25 ) * Surgical Consult (06/27/25 ) Obtain Consent For: (06/27/25 14:57) Obtain Consent For Anesthesia (06/27/25 14:57) Oxygen By Face Mask (06/27/25 15:05) Global Compensation Manager (06/27/25 15:05) Notify Anesth. For Changes: (06/27/25 15:05) Pulse Ox Assessment (06/27/25 15:05) Discharge To Room Per Criteria (06/27/25 15:05) Clear Liq Diet (06/27/25 Dinner) * Hospitalist Consult (06/27/25 ) Admit (06/27/25 16:50) Allergies (06/27/25 16:50) Code Status (06/27/25 16:50) 0.9% Ns 1000 Ml (06/27/25 17:00) Ondansetron Hcl (Zofran) (06/27/25 17:00) Docusate Sodium Capsule (Colace Capsule) (06/27/25 17:00) Complete Blood Count (06/28/25 04:00) Comprehensive Metabolic Panel (06/28/25 04:00) Condition: Stable (06/27/25 16:50) BRP (06/27/25 16:50) Morphine Sulfate Injection (06/27/25 17:00) Sequential Compression Device (06/27/25 ) Nitroglycerin Sublingual (Ntrostat Subli (06/27/25 17:00) Stat Ekg For Chest Pain (06/27/25 16:50) Notify Md Of Changes From Base (06/27/25 16:50) Fringe Weaver For 24 Hours (06/27/25 16:50) Emergency Dysrhythmia Protocol (06/27/25 16:50) Rhythm Strips Once Every Shift (06/27/25 16:50) Oxygen By Nasal Cannula (06/27/25 16:50) Ceftriaxone Ivpb Rocephin (06/28/25 09:00) Ceftriaxone Ivpb Rocephin (06/27/25 17:00) Doxycycline 100mg/100ml (Vibramycin) (06/27/25 17:00) Doxycycline 100mg/100ml (Vibramycin) (06/27/25 17:00) Communication Order (06/27/25 16:50) Vital Signs Date Time Temp Pulse Resp B/P (MAP) Pulse Ox O2 Delivery O2 Flow Rate FiO2 06/27/25 12:41 94 19 99 Room Air 06/27/25 12:41 99.1 94 19 127/58 (81) 99 99.1 06/27/25 12:01 99.1 94 19 127/58 99 99.1 Laboratory Tests Test 06/27/25 13:06 White Blood Count 11.6 10^3/uL (4.4-10.8) H Medications Medications Dose Ordered Sig/Chetan Route Start Time Stop Time Status Last Admin Dose Admin Bupivacaine HCl 50 ml STK-MED ONCE .ROUTE 06/27/25 15:13 06/27/25 15:13 DC 06/27/25 15:51 50 ML Cefazolin Sodium/ Dextrose 50 ml @ ud STK-MED ONCE IV 06/27/25 15:10 06/27/25 15:10 DC 06/27/25 15:31 Sodium Chloride 1,000 ml @ 1,000 mls/hr Q1H ONCE IV 06/27/25 14:00 06/27/25 14:59 DC 06/27/25 14:13 1,000 MLS/HR Assessment/Plan Assessment/Plan 20-year-old male admitted postlaparoscopic appendectomy for uncomplicated acute appendicitis, requiring postoperative monitoring due to decreased arousability and need for IV fluids, antibiotics, and pain control. Acute appendicitis status post laparoscopic appendectomy Surgery performed by Dr. Casey Uncomplicated appendicitis on CT Monitor surgical sites Continue postoperative antibiotics per surgery Advance diet as tolerated when awake Monitor for fever, abdominal pain, nausea, vomiting cont ancef for now IV pain control initially Transition to oral pain medications when awake Avoid oversedation Postoperative decreased level of consciousness Likely secondary to anesthesia and opioids Airway patent with oral airway Close neurologic monitoring Hold sedating medications until more alert acute Leukocytosis consistent with appendicitis/postoperative state WBC 11.6 Trend CBC cont ancef acute Ketones in urine Likely related to fasting/dehydration IV fluids Monitor intake/output chronic problems Eczema No acute issues FEN / PPx Fluids: IV normal saline Electrolytes: Monitor BMP Nutrition: NPO initially and advance to clr as tolerated DVT Prophylaxis: SCDs GI Prophylaxis: no hx of gerds or gi bleed no indication for gi ppx Disposition Admit to [facility] for postoperative monitoring following laparoscopic appendectomy. Continue IV fluids, antibiotics, and pain management. Monitor mental status closely. If patient becomes alert and stable, consider downgrade to medical- surgical level of care. Surgical team to follow. Plan discussed with: Patient My Orders Orders - VALERIE DAVID DNP Procedure Category Date Status Time Admit ADMIT 06/27/25 Verified 16:50 Allergies [facility] 06/27/25 Verified 16:50 Code Status CODE 06/27/25 Verified 16:50 0.9% Ns 1000 Ml PHA 06/27/25 Verified 17:00 Ondansetron Hcl PHA 06/27/25 Verified (Zofran) 17:00 Docusate Sodium PHA 06/27/25 Verified Capsule (Colace 17:00 Complete Blood Count LAB 06/28/25 Verified 04:00 Comprehensive LAB 06/28/25 Verified Metabolic Panel 04:00 Condition: Stable [facility] 06/27/25 Verified 16:50 BRP [facility] 06/27/25 Verified 16:50 Morphine Sulfate [facility] 06/27/25 Verified Injection 17:00 Sequential [facility] 06/27/25 Verified Compression Device Nitroglycerin [facility] 06/27/25 Verified Sublingual (Ntrostat 17:00 Stat Ekg For Chest [facility] 06/27/25 Verified Pain 16:50 Notify Md Of Changes [facility] 06/27/25 Verified From Base 16:50 Fringe Weaver For [facility] 06/27/25 Verified 24 Hours 16:50 Emergency Dysrhythmia [facility] 06/27/25 Verified Protocol 16:50 Rhythm Strips Once [facility] 06/27/25 Verified Every Shift 16:50 Oxygen By Nasal RT 06/27/25 Verified Cannula 16:50 Ceftriaxone Ivpb PHA 06/28/25 Verified Rocephin 09:00 Ceftriaxone Ivpb PHA 06/27/25 Verified Rocephin 17:00 Doxycycline PHA 06/27/25 Verified 100mg/100ml 17:00 Doxycycline PHA 06/27/25 Verified 100mg/100ml 17:00 Communication Order ORDERS 06/27/25 Verified 16:50 Date of Service: Jun 27, 2025 Billing Provider: VALERIE DAVID DNP Common Visit Codes: [id number] INP/OBS CARE (HIGH) VALERIE DAVID DNP Jun 27, 2025 16:55
[2025-06-27] MEDS ORDERED: DOCUSATE SOD 100 MG CAP PO PRN (17:00)
[2025-06-27] MEDS ORDERED: NITROGLYCERIN 0.4 MG SL TAB SL PRN (17:00)
[2025-06-27] MEDS ORDERED: DOXYCYCLINE 100MG/100ML 100 ML IV ONE (17:00)
[2025-06-27] MEDS: SODIUM CHLORIDE 0.9% 1,000 ML IV SCH (17:25)
[2025-06-27 17:42] VITALS: BP 113/87; PULSE 77; RESP 18; TEMP 98.4; O2SAT 99
[2025-06-27] MEDS: HYDROmorphone HCL 2 MG/ML VL/or syr IV PRN (17:43)
--- NOTE | 2025-06-27 18:23 | DVHOP ---
DATE OF SURGERY: 06/27/2025 PREOPERATIVE DIAGNOSIS: Acute appendicitis with intraabdominal pelvic abscess. POSTOPERATIVE DIAGNOSIS: Acute appendicitis with intraabdominal pelvic abscess. PROCEDURE: Drainage of intraabdominal pelvic abscess with laparoscopic appendectomy. SURGEON: Tin Casey MD FRONT CLERK: None. ANESTHESIA: General. ESTIMATED BLOOD LOSS: Close to 5 mL. DRAINS: No drains were used. COMPLICATIONS: No complications were encountered. DESCRIPTION OF PROCEDURE: The patient was prepped and draped in the usual sterile fashion in the supine position and a supraumbilical incision was applied. It was taken down to the fascia. The Veress needle was introduced and CO2 insufflation was started to a pressure of 15 mmHg. The needle was withdrawn, replaced by the 10 mm trocar and the telescope was introduced and the appendix was found to be acutely distended with pelvic purulent fluid collection and two 5 mm ports were applied more inferiorly, one above the symphysis, a third one between the upper two. The patient was then placed in Trendelenburg and right lateral position. The camera was removed along with the 5 mm port. The upper 2 ports were used for surgery. The abscess was drained out. The mesoappendix was clipped at the base and divided ____ using the Harmonic device. The base of the appendix was cleared for transection using the Endo MARIA C stapling device. The remainder of the appendix was removed from the surrounding tissue using the Harmonic device and the appendix released in this fashion was retrieved from the supraumbilical wound in the EndoCatch bag without any complication. Hemostasis was secured. Irrigation fluid was removed. All the port sites were free from bleeding. An EndoClose suture was used for the fascial closure of the supraumbilical wound. All the ports were withdrawn after all the CO2 was let out and the patient was placed supine. The wounds were then brought together using 3-0 Monocryl suture and ____ surgical glue was applied. The patient tolerated the procedure well and was taken back to the recovery room in stable condition. MD LIO Faye/UDD TID: [id number] RECEIPT: [id number]
[2025-06-27 20:00] VITALS: RESP 16; O2SAT 99
[2025-06-27 21:00] VITALS: BP 116/60; PULSE 84; RESP 18; TEMP 97.7; O2SAT 97
[2025-06-27] MEDS: ceFAZolin 1GM/50ML 50 ML IV SCH (21:30)
[2025-06-27] MEDS: MELATONIN 5 MG TAB PO ONE (23:15)
[2025-06-28] VITALS (7 sets, daily range): BP systolic 104–129; BP diastolic 63–77; PULSE 59–88; RESP 16–19; TEMP 97.3–98.5; O2SAT 97–100
[2025-06-28] MEDS: ONDANSETRON HCL 4 MG/2 ML VIAL IV PRN (00:01)
[2025-06-28] MEDS: MORPHINE SULFATE 4 MG/ML SYR/VIAL IV PRN (00:02)
--- NOTE | 2025-06-28 02:23 | DVHINCON2 ---
DATE OF CONSULTATION: 06/27/2025 HISTORY OF PRESENT ILLNESS: This patient is 20 years old, coming in with right lower quadrant pain for about 3 days. It got worse today. He came to the emergency room. I was asked to see him. Some nausea. No vomiting. No constipation or diarrhea. No hematemesis or melena. No bleeding per rectum. PAST MEDICAL HISTORY: No diabetes or hypertension. PAST SURGICAL HISTORY: Nothing significant. PHYSICAL EXAMINATION: VITAL SIGNS: Afebrile. Stable vital signs. HEENT: With no evidence of pallor, cyanosis or jaundice. NECK: Supple and nontender, with no thyromegaly or lymphadenopathy. CHEST AND LUNGS: Clear. HEART: Within normal limits. ABDOMEN: Soft, tender in the right lower quadrant with evidence of rebound. EXTREMITIES: Unremarkable. NEUROLOGIC: Intact. CLINICAL IMPRESSION: Acute appendicitis. PLAN: Laparoscopic possible open appendectomy. Benefits were discussed and a consent obtained. MD LIO Faye/TIFFANY TID: [id number] RECEIPT: [id number]
[2025-06-28] MEDS ORDERED: DOXYCYCLINE 100MG/100ML 100 ML IV SCH (05:00)
[2025-06-28 06:13] LABS: Hematocrit 40.3 % (41.0-53.0); Hemoglobin 13.9 g/dL (13.5-17.5); Mean Corpuscular Hemoglobin 30.4 pg (28.0-32.0); Mean Corpuscular Volume 88.0 fL (80.0-100.0); Nucleated Red Blood Cells % 0.0 %
[2025-06-28 06:29] LABS: Alanine Aminotransferase 19 U/L (7-40); Albumin 4.6 g/dL (3.2-4.8); Alkaline Phosphatase 97 U/L (46-116); Anion Gap 10 (5-15); BUN/Creatinine Ratio 12.9 (10.0-20.0); Blood Urea Nitrogen 12 mg/dL (9-23); Calcium 9.5 mg/dL (8.7-10.4); Carbon Dioxide 26 mmol/L (20-31); Chloride 104 mmol/L (98-107); Potassium 4.0 mmol/L (3.5-5.1); Sodium 140 mmol/L (136-145); Total Protein 7.3 g/dL (5.7-8.2)
[2025-06-28 06:30] LABS: Bilirubin, Total 0.7 mg/dL (0.2-1.0); Glucose 137 mg/dL (74-106)
--- NOTE | 2025-06-28 14:04 | DVHPN2 ---
Subjective The patient seen and examined at bedside. No complains, passed flatus, ambulate and tolerate clear liquid diet. Reviewed: Care Plan, H&P, Labs, Medications, Previous Orders, Radiology Changes from previous H/P or p: No Changes Eyes: No Pain, No Vision change, No Conjunctivae inflammation, No Eyelid inflammation, No Other, No Redness ENT: No Ear pain, No Ear discharge, No Nose pain, No Nose discharge, No Nose congestion, No Mouth pain, No Mouth swelling, No Throat pain, No Throat swelling, No Other Cardiovascular: No Chest Pain, No Palpitations, No Orthopnea, No Paroxysmal Noc. Dyspnea, No Edema, No Lt Headedness, No Other Respiratory: No Cough, No Dry, No Shortness of breath, No SOB with excertion, No Wheezing, No Hemoptysis, No Pleuritic Pain, No Sputum, No Other Gastrointestinal: No Nausea, No Vomiting; Abdominal Pain; No Diarrhea, No Constipation, No Melena, No Hematochezia, No Other Genitourinary: No Dysuria, No Frequency, No Incontinence, No Hematuria, No Retention, No Other Musculoskeletal: No other, No neck pain, No shoulder pain, No arm pain, No back pain, No hand pain, No leg pain, No foot pain Skin: No Rash, No Lesions, No Jaundice, No Bruising, No Other Objective Vitals Vital Signs Date Time Temp Pulse Resp B/P (MAP) Pulse Ox O2 Delivery O2 Flow Rate FiO2 06/28/25 12:29 64 18 129/72 06/28/25 09:00 97.7 100 97.7 06/28/25 07:46 Nasal Cannula* 1 24 Intake/Output Intake and Output 06/28/25 07:00 Intake Total 1950 ml Balance 1950 ml Intake Oral 800 ml IV Total 1150 ml # Voids 1 General Appearance: Alert, Oriented X3, Cooperative, No acute distress HEENT: Atraumatic, PERRLA, EOMI, Mucous membr. moist/pink Neck: Supple Lungs: Clear to auscultation, Normal air movement Cardiovascular: Regular rate, Normal S1, Normal S2, No murmurs, Gallops, Rubs Abdomen: Normal bowel sounds, Soft, No tenderness Neuro: Cranial nerves 3-12 NL Psych/Mental Status: Mental status NL Medications Current Medications Medications Dose Ordered Sig/Chetan Route Start Time Stop Time Status Last Admin Dose Admin Sodium Chloride 1,000 ml @ 120 mls/hr Q8H20M IV 06/27/25 17:00 06/28/25 05:52 120 MLS/HR Ondansetron HCl 4 mg Q4HP PRN IV 06/27/25 17:00 06/28/25 00:01 4 MG Docusate Sodium 100 mg BIDPRN PRN PO 06/27/25 17:00 Morphine Sulfate 2 mg Q4HPRN PRN IV 06/27/25 17:15 06/28/25 12:29 2 MG Nitroglycerin 0.4 mg Q5MINP PRN SL 06/27/25 17:00 Cefazolin Sodium 50 ml @ 100 mls/hr Q8H IV 06/27/25 22:30 06/28/25 13:35 100 MLS/HR Laboratory Results Laboratory Tests 06/28/25 05:19 Chemistry Test 06/28/25 05:19 Albumin 4.6 g/dL (3.2-4.8) Calcium Level 9.5 mg/dL (8.7-10.4) Total Protein 7.3 g/dL (5.7-8.2) LFT Test 06/28/25 05:19 Alanine Aminotransferase (ALT) 19 U/L (7-40) Alkaline Phosphatase 97 U/L (46-116) Aspartate Amino Transferase (AST) 27 U/L (13-40) Total Bilirubin 0.7 mg/dL (0.2-1.0) Urinalysis Test 06/27/25 13:07 Urine Color Yellow (Yellow) Urine Clarity Clear (Clear) Urine pH 5.5 (5.0-9.0) Urine Specific [place] 1.029 (1.001-1.035) Urine Protein Negative (Negative) Urine Ketones 1+ (Negative) H Urine Blood Negative /uL (Negative) Urine Nitrite Negative (Negative) Urine Bilirubin Negative (Negative) Urine Urobilinogen Normal mg/dL (Negative) Urine Leukocyte Esterase Negative /uL (Negative) Urine RBC 1 /hpf (0 - 3) Urine Microscopic WBC 2 /HPF (0-3) Urine Squamous Epithelial Cells None seen /hpf (<5) Urine Bacteria None seen /hpf (None Seen) Urine Mucus Few (None Seen) Urine Glucose Normal mg/dL (Normal) Labs and/or images reviewed: Labs reviewed by me Assessment/Plan Assessment/Plan Acute appendicitis status appendectomy Continue current management Continue IV antibiotic Continue IV pain med and oral pain meds. Will advance diet to regular as tolerate Waiting for surgeon to see patient Plan discussed with: Patient, Other (mother and father) Date of Service: Jun 28, 2025 Billing Provider: AB GARVEY MD Common Visit Codes: [id number] INP/OBS CARE(HIGH) AB GARVEY MD Jun 28, 2025 14:04
--- NOTE | 2025-06-28 17:40 | DVHPN2 ---
Progress Note Date Seen: Jun 28, 2025 Medical Necessity Reason Pt with a Central, PICC or Fol: No Objective vital signs Vital Sign Date Time Temp Pulse Resp B/P (MAP) Pulse Ox O2 Delivery O2 Flow Rate FiO2 06/28/25 17:00 97.5 79 16 119/77 (91) 99 97.5 06/28/25 07:46 Nasal Cannula* 1 24 Total Intake and Output 06/27/25 06/27/25 06/28/25 15:00 23:00 07:00 Intake Total 100 ml 1850 ml Balance 100 ml 1850 ml medications Current Medications Medications Dose Ordered Sig/Chetan Route Start Time Stop Time Status Last Admin Dose Admin Sodium Chloride 1,000 ml @ 120 mls/hr Q8H20M IV 06/27/25 17:00 06/28/25 05:52 120 MLS/HR Ondansetron HCl 4 mg Q4HP PRN IV 06/27/25 17:00 06/28/25 00:01 4 MG Docusate Sodium 100 mg BIDPRN PRN PO 06/27/25 17:00 Morphine Sulfate 2 mg Q4HPRN PRN IV 06/27/25 17:15 06/28/25 12:29 2 MG Nitroglycerin 0.4 mg Q5MINP PRN SL 06/27/25 17:00 Cefazolin Sodium 50 ml @ 100 mls/hr Q8H IV 06/27/25 22:30 06/28/25 13:35 100 MLS/HR laboratory and microbiology Laboratory Tests 06/28/25 05:19 Test 06/28/25 05:19 Range/Units Serum Glucose 137 H 74-106 mg/dL Problem List/Assessment/Plan Problem List/Assessment/Plan AFEBRILE VSS ABD SOFT WOUNDS HEALING NO COMPLICATIONS JEFF DIET CLEARED FOR DISCHARGE INSTRUCTIONS RE DIET ACTIVITY F/UP GIVEN FAMILY AND NURSE AT BEDSIDE Plan discussed with: Patient SINDY HARRIS MD Jun 28, 2025 17:40
[2025-06-29 01:00] VITALS: BP 116/66; PULSE 62; RESP 18; TEMP 97.8; O2SAT 100
[2025-06-29 05:00] VITALS: BP 129/75; PULSE 55; RESP 16; TEMP 98.5; O2SAT 100
[2025-06-29] MEDS: ACETAMINOPHEN 325 MG TAB PO PRN (06:23)
[2025-06-29 08:00] VITALS: RESP 17; O2SAT 99
[2025-06-29 08:55] VITALS: BP 118/75; PULSE 71; RESP 20; TEMP 98.2; O2SAT 100
[2025-06-29] MEDS ORDERED: METR-344 PO (12:47)
[2025-06-29] MEDS ORDERED: IBUP1TAB5 PO (12:47)
[2025-06-29] MEDS ORDERED: ZOFR4T PO (12:47)
[2025-06-29] MEDS ORDERED: LEVO500T91 PO (12:47)
--- NOTE | 2025-06-29 12:48 | DVHDS2 ---
Discharge Summary Date of Admission Jun 27, 2025 at 16:50 Date of Discharge: Jun 29, 2025 Admitting Diagnosis acute appendicitis Abdominal pain Nausea/vomiting. Labs/Diagnostic Data: Laboratory Results Test 06/28/25 05:19 06/27/25 13:07 06/27/25 13:06 White Blood Count 9.5 10^3/uL (4.4-10.8) Red Blood Count 4.59 10^6/uL (4.5-5.90) Hemoglobin 13.9 g/dL (13.5-17.5) Hematocrit 40.3 % (41.0-53.0) Mean Corpuscular Volume 88.0 fL (80.0-100.0) Mean Corpuscular Hemoglobin 30.4 pg (28.0-32.0) Mean Corpuscular Hemoglobin Concent 34.5 g/dL (32.0-36.0) Red Cell Distribution Width 13.4 % (11.8-14.3) Platelet Count 195 10^3/uL (140-450) Mean Platelet Volume 8.5 fL (6.9-10.8) Neutrophils (%) (Auto) 90.3 % (37.0-80.0) Lymphocytes (%) (Auto) 6.9 % (10.0-50.0) Monocytes (%) (Auto) 2.8 % (0.0-12.0) Eosinophils (%) (Auto) 0.0 % (0.0-7.0) Basophils (%) (Auto) 0.0 % (0.0-2.0) Neutrophils # (Auto) 8.5 10 ^3/uL (1.6-8.6) Lymphocytes # (Auto) 0.7 10 ^3/uL (0.4-5.4) Monocytes # (Auto) 0.3 10 ^3/uL (0-1.3) Eosinophils # (Auto) 0 10 ^3/uL (0-0.8) Basophils # (Auto) 0 10 ^3/uL (0-0.2) Nucleated Red Blood Cells 0.0 % Sodium Level 140 mmol/L (136-145) Potassium Level 4.0 mmol/L (3.5-5.1) Chloride Level 104 mmol/L (98-107) Carbon Dioxide Level 26 mmol/L (20-31) Anion Gap 10 (5-15) Blood Urea Nitrogen 12 mg/dL (9-23) Creatinine 0.93 mg/dL (0.700-1.30) Glomerular Filtration Rate Calc 119 mL/min (>90) BUN/Creatinine Ratio 12.9 (10.0-20.0) Serum Glucose 137 mg/dL (74-106) Calcium Level 9.5 mg/dL (8.7-10.4) Total Bilirubin 0.7 mg/dL (0.2-1.0) Aspartate Amino Transferase (AST) 27 U/L (13-40) Alanine Aminotransferase (ALT) 19 U/L (7-40) Alkaline Phosphatase 97 U/L (46-116) Total Protein 7.3 g/dL (5.7-8.2) Albumin 4.6 g/dL (3.2-4.8) Urine Color Yellow (Yellow) Urine Clarity Clear (Clear) Urine pH 5.5 (5.0-9.0) Urine Specific [place] 1.029 (1.001-1.035) Urine Protein Negative (Negative) Urine Ketones 1+ (Negative) Urine Blood Negative /uL (Negative) Urine Nitrite Negative (Negative) Urine Bilirubin Negative (Negative) Urine Urobilinogen Normal mg/dL (Negative) Urine Leukocyte Esterase Negative /uL (Negative) Urine RBC 1 /hpf (0 - 3) Urine Microscopic WBC 2 /HPF (0-3) Urine Squamous Epithelial Cells None seen /hpf (<5) Urine Bacteria None seen /hpf (None Seen) Urine Mucus Few (None Seen) Urine Glucose Normal mg/dL (Normal) Lipase 28 U/L (12-53) Other Laboratory Tests 06/28/25 05:19 Brief Hx & Hospital Course: 20-year-old male with past medical history significant only for eczema and no prior surgical history presented with right lower quadrant abdominal pain with intractable nausea/vomiting for three days. He was evaluated at an urgent care facility and sent to the emergency department for concern of appendicitis. CT abdomen and pelvis demonstrated uncomplicated acute appendicitis. The patient underwent laparoscopic appendectomy performed by Dr. Casey. Post op the patient is recovering well. He tolerate clear liquid diet and was advance to regular diet.The patient passed flatus. Surgery clear him to be discharge today. So I am going to discharge him home. Advise him to follow up with PCP 1-2 weeks. Follow up with surgeon per schedule. Do not lift any object more than 10 lbs. He need to be on light duty at work for one week after one week off. General Appearance: Alert, Oriented X3, Cooperative, No acute distress HEENT: Atraumatic, PERRLA, EOMI, Mucous membr. moist/pink Neck: Supple Lungs: Clear to auscultation, Normal air movement Cardiovascular: Regular rate, Normal S1, Normal S2, No murmurs, Gallops, Rubs Abdomen: Normal bowel sounds, Soft, No tenderness Neuro: Cranial nerves 3-12 NL Psych/Mental Status: Mental status NL Condition at Discharge: Stable Final Diagnosis/Problems List Acute appendicitis status post appendectomy. Abdominal pain Nausea/vomiting. Discharge Disposition: Home Discharge Instruct/Medications Diet: Regular Activity: No Restrictions, As Tolerated Activity comment: do not lift and carry any object more than 10 lbs for 2 weeks Follow Up/Referral: pcp 1-2 weeks Surgeon, Dr Casey per schedule Scheduled Benzonatate (Benzonatate), 1 CAP PO TID Ibuprofen (Ibuprofen), 1 TAB PO TID Ibuprofen Micronized (Ibuprofen), 600 MG PO TID Levofloxacin Hemihydrate (Levaquin 500 Mg), 1 TAB PO DAILY Metronidazole (Flagyl), 1 TAB PO TID Promethazine-Dm (Promethazine Dm 6.25-15 mg/5Ml), 5 ML PO TID Scheduled PRN Ondansetron Odt 4MG Tab (Zofran Po), 4 MG PO Q8HPRN PRN Discontinued Medications Amoxicillin & Pot Clavulanate (Augmentin Tablet), 875 MG PO BID Ondansetron Odt 4MG Tab (Zofran Po), 4 MG PO Q8HPRN PRN Discharge Statement: "Patient was advised to return to the ER or call 911 if any headaches, dizziness, shortness of breath, chest pain, abdominal pain, bleeding, fevers, or worsening of medical condition. Patient was counseled about treatment plan, medications, possible side effects, patientverbalized understanding. All questions were answered to the best of my ability. This discharge took greater then 30 minutes in planning, reviewing documentation, counseling the patient, and discussing with other team members." ASSESSMENT ASSESSMENT Assessment Acute appendicitis Date of Service: Jun 29, 2025 Billing Provider: AB GARVEY MD Common Visit Codes: 16751-QXB/OBS DISCH DAY >30min AB GARVEY MD Jun 29, 2025 12:48
== END 2025-06-29 13:49 | disposition home or self-care (01) | DRG 399 ==
LOC: ER 11:43 → OVERFLOW 16:50 → TELE-WESTW 18:25
PROVIDERS: ADMIT Nurse Practitioner Family; ATTEND Nurse Practitioner Family
PROC: 0DTJ4ZZ Resection of Appendix, Percutaneous Endoscopic Approach (ICD-10-PCS; principal; 2025-06-27 15:31)
DX: K35.33 Acute appendicitis with perforation, localized peritonitis, and gangrene, with abscess (principal); E86.0 Dehydration; K38.1 Appendicular concretions
CPT/HCPCS: 36415; 74176; 80053; 81001; 83690; 85025; 96374; G0378; J1100; J2003; J2250; J2405; J2704; J3490